=== PATIENT | male | born 1935 | race Caucasian/White ===

== ENCOUNTER 2018-11-22 13:14 | Day surgery (SDC) | payer MEDICARE, BC ==
[~2018-11-22] VITALS: Ht 172.7 cm; Wt 89.4 kg
[2018-11-22 14:36] VITALS: BP 156/73; PULSE 64; TEMP 97.3
[2018-11-22] MEDS ORDERED: ASPIRIN E.C. 8181 MG PO (14:45)
[2018-11-22] MEDS ORDERED: LIPITOR 80MG80 MG PO (14:45)
[2018-11-22] MEDS ORDERED: CALCIUM 600-D 61 TAB PO (14:46)
[2018-11-22] MEDS ORDERED: PLAVIX 75MG TAB75 MG PO (14:48)
[2018-11-22] MEDS ORDERED: COLACE 100100 MG/CAP PO (14:49)
[2018-11-22] MEDS ORDERED: FOLIC ACID 11 MG/TA1 PO (14:50)
[2018-11-22] MEDS ORDERED: LASIX 20MG TABL20 MG PO (14:50)
[2018-11-22] MEDS ORDERED: ICAPS TABLET1 EACH PO (14:51)
[2018-11-22] MEDS ORDERED: TIROSINT150 MC1 PO (14:55)
[2018-11-22] MEDS ORDERED: METHOTREXATE50/2 SQ (14:58)
[2018-11-22] MEDS ORDERED: PROTONIX 40MG T40 MG PO (15:01)
[2018-11-22] MEDS ORDERED: MIRALAX PA17 GM/Dose PO (15:02)
[2018-11-22] MEDS ORDERED: MASON NATURAL2000 IU PO (15:02)
[2018-11-22] MEDS ORDERED: TYLENOL 500MG500 MG PO (15:03)
[2018-11-22] MEDS ORDERED: ALBUTEROL0.83 MG/ML IH (15:04)
[2018-11-22] MEDS ORDERED: XANAX .25M0.25 MG/TA PO (15:05)
[2018-11-22] MEDS ORDERED: TUMS500 MG PO (15:06)
[2018-11-22] MEDS ORDERED: DULCOLAX S10 MG/SUPP RC (15:06)
[2018-11-22] MEDS ORDERED: ULTRAM 50MG TAB50 MG PO (15:07)
[2018-11-22] MEDS ORDERED: ROBITUSSIN A-C S1 M1 PO (15:08)
[2018-11-22 16:15] VITALS: BP 122/52; PULSE 66; TEMP 97.2
--- NOTE | 2018-11-22 16:15 | NUR ---
Pt to [facility] via cart from PACU. Pt awake and alert. Denies pain or nausea. IVF saline locked. Gutierrez to dependant drainage with yellow clear urine drainaing. Pepsi and ice cream given per pt request. Daughter in room. Will continue to monitor. Call light within reach.
[2018-11-22 16:30] VITALS: BP 139/53; PULSE 65
--- NOTE | 2018-11-22 16:30 | NUR ---
Pt tolerating food and fluids without difficulties. Denies needs. Call light within reach.
[2018-11-22 16:45] VITALS: BP 127/67; PULSE 68
--- NOTE | 2018-11-22 16:45 | NUR ---
IV site discontinued with all parts intact. Lal catheter changed to leg bag per pt and daughter request. Per daughter this is all he uses and does not want the large lal bag. Pt assisted with dressing. Call light within reach.
--- NOTE | 2018-11-22 17:05 | NUR ---
Discharge instructions reviewed. Pt and daughter voice understanding. Pt escorted to private car via wheel chair. Pt accompanied home by his daughter.
== END 2018-11-22 17:06 | disposition home or self-care (01) ==
LOC: SDCO 13:14
DX: N32.0 Bladder-neck obstruction (principal); Z85.46 Personal history of malignant neoplasm of prostate; Z85.118 Personal history of other malignant neoplasm of bronchus and lung; Z92.3 Personal history of irradiation; K21.9 Gastro-esophageal reflux disease without esophagitis; M06.9 Rheumatoid arthritis, unspecified; I25.2 Old myocardial infarction; Z90.79 Acquired absence of other genital organ(s); E89.0 Postprocedural hypothyroidism; Z87.440 Personal history of urinary (tract) infections; Z90.2 Acquired absence of lung [part of]; Z79.899 Other long term (current) drug therapy; Z87.891 Personal history of nicotine dependence; Z79.82 Long term (current) use of aspirin; Z96.652 Presence of left artificial knee joint; I10 Essential (primary) hypertension; K44.9 Diaphragmatic hernia without obstruction or gangrene; F32.9 Major depressive disorder, single episode, unspecified; F03.90 Unspecified dementia, unspecified severity, without behavioral disturbance, psychotic disturbance, mood disturbance, and anxiety; E03.9 Hypothyroidism, unspecified
CPT/HCPCS: J0690; J1100; J2405; J2704; J3010; J7120